=== PATIENT | female | born 1995 | race Caucasian/White ===

== ENCOUNTER → 2020-11-24 | Outpatient (CLI) | payer OTHER ==
[2020-11-25 10:19] LABS: Candida species (DNA Probe) Negative (NEGATIVE); G. vaginalis (DNA Probe) Positive (NEGATIVE); T. vaginalis (DNA Probe) Negative (NEGATIVE)
[2020-11-26 00:09] LABS: CHLAMYDIA TRACHOMATIS, NAA Negative (Negative)
== END ==
LOC: LAB 16:00 → LAB SHORT 16:00
PROVIDERS: Nurse Practitioner Family
DX: Z11.3 Encounter for screening for infections with a predominantly sexual mode of transmission (principal)
CPT/HCPCS: 87480; 87491; 87510; 87591; 87660

== ENCOUNTER → 2021-03-24 | Outpatient (CLI) | payer OTHER | LOC: LAB 12:00 → LAB SHORT 12:00 | DX: N39.0 Urinary tract infection, site not specified (principal); R11.0 Nausea; E10.649 Type 1 diabetes mellitus with hypoglycemia without coma | CPT/HCPCS: 87077; 87086; 87186 ==

== ENCOUNTER → 2021-12-27 | Outpatient (CLI) | payer OTHER | END | disposition home or self-care (01) | LOC: LAB 15:00 → LAB SHORT 15:00 | DX: R39.0 Extravasation of urine (principal) | CPT/HCPCS: 87086 ==

== ENCOUNTER → 2022-09-24 | Outpatient (CLI) | payer OTHER | LOC: LAB SHORT 15:12 → LAB 15:12 | DX: N39.0 Urinary tract infection, site not specified (principal) | CPT/HCPCS: 87086 ==

== ENCOUNTER 2023-01-30 20:41 | Emergency (ER) | payer OTHER ==
[~2023-01-30] VITALS: Ht 162.6 cm; Wt 72.6 kg
[2023-01-30 22:00] VITALS: BP 149/91
== END 2023-01-30 22:00 | disposition home or self-care (01) ==
LOC: ER 20:41
DX: F41.0 Panic disorder [episodic paroxysmal anxiety] (principal); E11.9 Type 2 diabetes mellitus without complications; Z88.0 Allergy status to penicillin
CPT/HCPCS: 82947; 93005; 93010; 99283-25

== ENCOUNTER 2023-06-04 19:31 | Observation (INO) | payer OTHER ==
[~2023-06-04] VITALS: Ht 160 cm; Wt 61.9 kg
[2023-06-04 20:21] LABS: Base Excess Venous 1.3 mmol/L; Bicarbonate Venous 25.3 mmol/L (24.0-30.0); PCO2 Venous 43.6 mmHg (38-42); pH Blood Venous 7.39 (7.34-7.37)
[2023-06-04 20:26] LABS: BASOPHILS ABSOLUTE AUTO 0.06 K/mm3 (0.00-0.23); BASOPHILS PERCENT AUTO 0 % (0-2); EOSINOPHILS ABSOLUTE AUTO 0.14 K/mm3 (0.00-0.68); EOSINOPHILS PERCENT AUTO 1 % (0-6); Hematocrit 36.7 % (33.0-51.0); Hemoglobin 12.9 g/dL (11.5-16.0); IMMATURE GRAN ABSOLUTE AUTO 0.11 K/mm3 (0.00-0.10); IMMATURE GRAN PERCENT AUTO 1 % (0-1); LYMPHOCYTES ABSOLUTE AUTO 1.93 K/mm3 (0.84-5.20); LYMPHOCYTES PERCENT AUTO 10 % (21-46); MONOCYTES ABSOLUTE AUTO 1.02 K/mm3 (0.16-1.47); MONOCYTES PERCENT AUTO 5 % (4-13); Mean Corpuscular HGB 30.7 pg (26.0-34.0); Mean Corpuscular HGB Conc 35.1 g/dL (31.5-36.5); Mean Corpuscular Volume 87 fL (80-100); Mean Platelet Volume 11.2 fL (9.1-12.4); NEUTROPHILS ABSOLUTE AUTO 16.43 K/mm3 (1.96-9.15); NEUTROPHILS PERCENT AUTO 83 % (41-73); Platelet Count 303 K/mm3 (150-400); RDW Coefficient Variation 11.5 % (11.7-14.2); White Blood Cell Count 19.69 K/mm3 (4.00-11.30)
[2023-06-04 20:46] LABS: Source, Urine Straight Cath
[2023-06-04 20:58] LABS: Appearance, Urine Cloudy (Clear); Bilirubin, Urine Neg (Neg); Blood, Urine 5+ (Neg); Color, Urine Yellow (P-Yellow); Glucose Qualitative, Urine 4+ (Neg); Ketones, Urine 2+ (Neg); Leukocyte Esterase, Urine 1+ (Neg); Nitrite, Urine Neg (Neg); Protein, Urine 2+ (Neg); Specific Gravity, Urine 1.025 (1.003-1.022); Urobilinogen, Urine NORM (Normal)
[2023-06-04 21:00] LABS: Alanine Aminotransfer (ALT/SGP 30 U/L (12-78); Albumin, Blood 3.1 g/dL (3.4-5.0); Alk Phos 86 U/L (50-136); Anion Gap 6 mmol/L (6-16); Aspartate Aminotrans (AST/SGOT 17 U/L (12-37); Beta HCG, Quantitative, Serum <1 mIU/mL (0-3); Bilirubin, Total 0.2 mg/dL (0.1-1.0); Blood Urea Nitrogen 9 mg/dL (8-24); Bun/Creatinine Ratio 13.8 (12.0-20.0); CO2, Blood 25 mmol/L (21-32); Chloride, Blood 105 mmol/L (98-108); Creatinine, Blood 0.65 mg/dL (0.40-1.00); Ethanol (Alcohol), Blood, Med <3 mg/dL; Globulin, Blood 3.1 g/dL (2.2-4.0); Glomerular Filtration Rate 122 (60-); Glucose, Blood 335 mg/dL (70-99); Potassium, Blood 3.3 mmol/L (3.5-5.5); Sodium, Blood 136 mmol/L (136-145); Total Protein, Blood 6.2 g/dL (6.4-8.2)
[2023-06-04 21:24] LABS: U Amphetamine Screen DETECTED; U Barbituate Screen Not Detected; U Benzodiazapine Screen Not Detected; U Buprenorphine Screen Not Detected; U Cannabinoids Screen Not Detected; U Cocaine Screen Not Detected; U Methadone Screen Not Detected; U Methamphetamine Screen DETECTED; U Opiates Screen Not Detected; U Oxycodone Screen Not Detected; U Phencyclidine Screen Not Detected; U Propoxyphene Screen Not Detected
[2023-06-04 21:27] LABS: Bacteria Many /hpf; Red Blood Cells, Urine 0-2 /hpf (0-2); Squamous Epithelial Cells Few /hpf (Few)
[2023-06-05] VITALS: BP 116/75
[2023-06-05 03:27] LABS: BASOPHILS ABSOLUTE AUTO 0.05 K/mm3 (0.00-0.23); BASOPHILS PERCENT AUTO 1 % (0-2); EOSINOPHILS ABSOLUTE AUTO 0.24 K/mm3 (0.00-0.68); EOSINOPHILS PERCENT AUTO 3 % (0-6); Hematocrit 35.1 % (33.0-51.0); Hemoglobin 11.7 g/dL (11.5-16.0); IMMATURE GRAN ABSOLUTE AUTO 0.03 K/mm3 (0.00-0.10); IMMATURE GRAN PERCENT AUTO 0 % (0-1); LYMPHOCYTES ABSOLUTE AUTO 3.06 K/mm3 (0.84-5.20); LYMPHOCYTES PERCENT AUTO 34 % (21-46); MONOCYTES ABSOLUTE AUTO 0.85 K/mm3 (0.16-1.47); MONOCYTES PERCENT AUTO 10 % (4-13); Mean Corpuscular HGB 30.4 pg (26.0-34.0); Mean Corpuscular HGB Conc 33.3 g/dL (31.5-36.5); Mean Corpuscular Volume 91 fL (80-100); Mean Platelet Volume 11.1 fL (9.1-12.4); NEUTROPHILS ABSOLUTE AUTO 4.68 K/mm3 (1.96-9.15); NEUTROPHILS PERCENT AUTO 53 % (41-73); Platelet Count 272 K/mm3 (150-400); RDW Coefficient Variation 11.6 % (11.7-14.2); RDW Standard Deviation 38.6 fL (35.1-46.3); Red Blood Cell Count 3.85 M/mm3 (3.80-5.20); White Blood Cell Count 8.91 K/mm3 (4.00-11.30)
[2023-06-05 03:29] VITALS: BP 122/77
[2023-06-05 04:03] LABS: Albumin, Blood 2.6 g/dL (3.4-5.0); Albumin/Globulin Ratio 1.1 (0.8-1.8); Bilirubin, Total 0.3 mg/dL (0.1-1.0); Calcium, Blood 7.3 mg/dL (8.5-10.1); Creatinine, Blood 0.67 mg/dL (0.40-1.00); Globulin, Blood 2.4 g/dL (2.2-4.0); Potassium, Blood 4.4 mmol/L (3.5-5.5)
--- NOTE | 2023-06-05 06:17 | NUR ---
PATIENT ADMITTED OVERNIGHT FOR SEPSIS D/T UTI. AOX4. SR/ST WITH STABLE BP. ROOM AIR. TOLERATING ADA DIET. TOTAL OF 3L FLUIDS GIVEN IN PCU.
[2023-06-05 07:21] VITALS: BP 130/84
--- NOTE | 2023-06-05 09:08 | NUR ---
ASSUMPTION OF CARE ASSUMED CARE AT APPROX 0700. PT AOX4. SLEEPING, EASILY AROUSABLE TO VERBAL STIMULI. ABLE TO COMMUNICATE NEEDS NEEDED. EXPRESSING DESIRE TO DISCHARGE HOME TODAY. VSS. TELEMETRY SHOWING SINUS RHYTHM 90'S. OCCASSIONAL EPISODES OF TACHYCARDIA 110'S. PT REPORTS THAT BASELINE HEART RATE IS 90'S-110'S. BP STABLE. SATS >90% ON ROOM AIR. PT REPORTS NO NAUSEA THIS MORNING, INCREASED APPETITE REPORTED. MANAGING ELEVATED BLOOD SUGAR PER EMAR. IVF INFUSING PER EMAR. DECLINES DIFFICULTY VOIDING, NO BURNING OR IRRITATION. PT INDEPENDENT IN ROOM. CALL LIGHT IN REACH.
[2023-06-05 11:22] VITALS: BP 124/77
--- NOTE | 2023-06-05 11:41 | NUR ---
AFTERNOON BLOOD SUGAR READING 406. THIS RN PLACED CALL TO DR. GARCIA. ORDERS FOR ADDITIONAL 2 UNITS OF REGULAR INSULIN SC ALONG WITH SLIDING SCALE [address] TOTAL OF 12 UNITS SC OF REGULAR INSULIN ADMINISTERED. THIS RN DISCUSSED HOME INUSLIN USAGE: PATIENT SHOWS THIS RN HOME INSULIN PUMP. INSULIN PUMP READING: CARB RATIO 6.0g/u AND BASAL DOSING OF 24U. PATIENT STATES SHE USES [employer] AT HOME AND HAS GONE TO DIRECTOR OF SUSTAINABLE DESIGN REFILL FROM PHARMACY.
[2023-06-05] MEDS ORDERED: INSULIN LI100 UNIT/5 SC (12:55)
[2023-06-05] MEDS ORDERED: CEPH500 PO (13:40)
[2023-06-05] MEDS ORDERED: ACET325 PO (13:41)
--- NOTE | 2023-06-05 14:32 | NUR ---
DISCHARGE NOTE NO ACUTE CHANGES SINCE ASSUMPTION OF CARE NOTE. PT REMAINS AOX4. VS REMAIN STABLE. TELEMETRY CONTINUES TO SHOW SR 90'S. BP STABLE. ON ROOM AIR, SATS >90%. ELEVATED BLOOD SUGAR LEVELS MANAGED PER EMAR. TOLERATING PO INTAKE, NO EPISODES OF NAUSEA AND VOMITING. INCREASED APPETITE REPORTED. DISCHARGE ORDERED BY MD. THIS RN PROVIDED DISCHARGE EDUCATION REGARDING MEDICATION, FOLLOW-UP OUTPATIENT CARE, AND BLOOD SUGAR MANAGEMENT AT HOME. HIGHLIGHTED IMPORTANCE OF DISCONTINUING METHAMPHETAMINE USE. PT VERBALIZING UNDERSTANDING, ASKS QUESTIONS PRN. IV RMVD. TELEMETRY BOX RMVD. PERSONAL BELONGINGS WITH PT. PT INDEPENDENT IN ROOM THROUGHOUT DAY, WAS ABLE TO DRESS HERSELF IN PERSONAL CLOTHING. PT TRANSFERRED TO PERSONAL VEHICLE VIA WHEELCHAIR AT APPROX 1425.
--- NOTE | 2023-06-05 14:51 | NUR ---
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 MORENITA HURST CONTACTED SECURITY, WAS TOLD TO DISPOSE OF EXPERIENCED TRUCK DRIVER IF PT DOES NOT WANT IT BACK. MORENITA HURST CONTACTED PT'S . PT DOES NOT WANT EXPERIENCED TRUCK DRIVER BACK, WAS TOLD TO DISPOSE OF EXPERIENCED TRUCK DRIVER. EXPERIENCED TRUCK DRIVER DISPOSED.
== END 2023-06-05 14:29 | disposition home or self-care (01) ==
LOC: ER 19:31 → PCU 19:32
PROVIDERS: Emergency Medicine; Student in an Organized Health Care Education/Training Program; ADMIT Internal Medicine
DX: A41.9 Sepsis, unspecified organism (principal); N39.0 Urinary tract infection, site not specified; E10.65 Type 1 diabetes mellitus with hyperglycemia; E87.6 Hypokalemia; Z79.4 Long term (current) use of insulin; F41.9 Anxiety disorder, unspecified; F17.210 Nicotine dependence, cigarettes, uncomplicated; Z88.0 Allergy status to penicillin
CPT/HCPCS: 36415; 71045; 80053; 81001; 82803; 82947; 83036; 83605; 84702; 85025; 87040; 87077; 87086; 87186; 94760; 96361; 96365; 96372; 96375; 99285-25; A9270; G0378; J0696; J1650; J1815; J2405; J7030

== ENCOUNTER 2023-07-13 19:35 | Observation (INO) | payer OTHER ==
[~2023-07-13] VITALS: Ht 167.6 cm; Wt 59.2 kg
[~2023-07-13 19:35] MED LIST: ACET325 PO; CEPH500 PO; INSULIN LI100 UNIT/5 SC
[2023-07-13 20:07] LABS: Base Excess Venous -21.8 mmol/L; Bicarbonate Venous 10.3 mmol/L (24.0-30.0); PCO2 Venous 26.1 mmHg (38-42); pH Blood Venous 7.09 (7.34-7.37)
[2023-07-13 20:08] LABS: BASOPHILS ABSOLUTE AUTO 0.13 K/mm3 (0.00-0.23); BASOPHILS PERCENT AUTO 1 % (0-2); EOSINOPHILS ABSOLUTE AUTO 0.04 K/mm3 (0.00-0.68); EOSINOPHILS PERCENT AUTO 0 % (0-6); Hematocrit 51.2 % (33.0-51.0); IMMATURE GRAN ABSOLUTE AUTO 0.28 K/mm3 (0.00-0.10); IMMATURE GRAN PERCENT AUTO 1 % (0-1); LYMPHOCYTES ABSOLUTE AUTO 3.31 K/mm3 (0.84-5.20); LYMPHOCYTES PERCENT AUTO 17 % (21-46); MONOCYTES ABSOLUTE AUTO 0.83 K/mm3 (0.16-1.47); MONOCYTES PERCENT AUTO 4 % (4-13); Mean Corpuscular HGB 30.7 pg (26.0-34.0); Mean Corpuscular HGB Conc 33.2 g/dL (31.5-36.5); Mean Corpuscular Volume 93 fL (80-100); Mean Platelet Volume 10.8 fL (9.1-12.4); NEUTROPHILS ABSOLUTE AUTO 15.04 K/mm3 (1.96-9.15); NEUTROPHILS PERCENT AUTO 77 % (41-73); Platelet Count 465 K/mm3 (150-400); RDW Coefficient Variation 11.7 % (11.7-14.2); RDW Standard Deviation 40.3 fL (35.1-46.3); Red Blood Cell Count 5.53 M/mm3 (3.80-5.20); White Blood Cell Count 19.63 K/mm3 (4.00-11.30)
[2023-07-13 20:23] LABS: Source, Urine Clean Catch
[2023-07-13 20:26] LABS: Bilirubin, Urine Neg (Neg); Blood, Urine 4+ (Neg); Glucose Qualitative, Urine 4+ (Neg); Ketones, Urine 4+ (Neg); Leukocyte Esterase, Urine Neg (Neg); Nitrite, Urine Neg (Neg); Protein, Urine 2+ (Neg); Specific Gravity, Urine 1.025 (1.003-1.022); Urobilinogen, Urine NORM (Normal)
[2023-07-13 20:29] LABS: Appearance, Urine Hazy (Clear); Color, Urine Yellow (P-Yellow)
[2023-07-13 20:32] LABS: Ethanol (Alcohol), Blood, Med <3 mg/dL; Magnesium, Blood 2.2 mg/dL (1.6-2.4)
[2023-07-13 20:35] LABS: Bacteria Mod /hpf; Red Blood Cells, Urine 0-2 /hpf (0-2); Squamous Epithelial Cells Mod /hpf (Few); White Blood Cells, Urine Not Seen /hpf (0-5)
[2023-07-13 20:37] LABS: Alanine Aminotransfer (ALT/SGP 37 U/L (12-78); Albumin, Blood 4.3 g/dL (3.4-5.0); Albumin/Globulin Ratio 0.9 (0.8-1.8); Alk Phos 158 U/L (50-136); Anion Gap 25 mmol/L (6-16); Aspartate Aminotrans (AST/SGOT 21 U/L (12-37); Bilirubin, Total 0.6 mg/dL (0.1-1.0); Blood Urea Nitrogen 18 mg/dL (8-24); Bun/Creatinine Ratio 19.2 (12.0-20.0); CO2, Blood 8 mmol/L (21-32); Calcium, Blood 9.4 mg/dL (8.5-10.1); Chloride, Blood 93 mmol/L (98-108); Creatinine, Blood 0.94 mg/dL (0.40-1.00); Globulin, Blood 4.6 g/dL (2.2-4.0); Glomerular Filtration Rate 84 (60-); Glucose, Blood 547 mg/dL (70-99); Potassium, Blood 5.3 mmol/L (3.5-5.5); Sodium, Blood 126 mmol/L (136-145); Total Protein, Blood 8.9 g/dL (6.4-8.2)
[2023-07-13 20:41] LABS: U Amphetamine Screen Not Detected; U Methamphetamine Screen DETECTED
[2023-07-13 20:42] LABS: U Barbituate Screen Not Detected; U Benzodiazapine Screen Not Detected; U Buprenorphine Screen Not Detected; U Cannabinoids Screen Not Detected; U Cocaine Screen Not Detected; U Methadone Screen Not Detected; U Opiates Screen Not Detected; U Oxycodone Screen Not Detected; U Phencyclidine Screen Not Detected
[2023-07-13 21:23] LABS: Beta-hydroxybutyrate 103.1 mg/dL (0.2-2.8); Phosphorus, Blood 4.4 mg/dL (2.5-4.9)
[2023-07-13 21:32] LABS: Influenza A, PCR NEGATIVE (NEGATIVE); Influenza B, PCR NEGATIVE (NEGATIVE); Resp Syncytial Virus, PCR NEGATIVE (NEGATIVE); SARS-Cov-2 (COVID-19) PCR, MMC NEGATIVE (NEGATIVE)
[2023-07-13 22:50] LABS: Bun/Creatinine Ratio 19.5 (12.0-20.0); Creatinine, Blood 0.82 mg/dL (0.40-1.00); Potassium, Blood 6.2 mmol/L (3.5-5.5)
[2023-07-13 23:00] VITALS: BP 109/49
--- NOTE | 2023-07-13 23:17 | NUR ---
ASSUMPTION OF CARE PT TO ICU VIA HOSPITAL BED AT 2240. PT ALERT, ORIGINALLY UNABLE TO ANSWER ANY QUESTIONS, WHEN ASKED AGAIN PT ABLE TO STATE NAME AND , SPEECH MUMBLED. PT COMPLAINING OF ANXIETY, TACHYPNEIC, HR 120'S SINUS TACH, MAP >65. PT ON RA, OXYGEN SATURATION >95%. BED IN LOWEST POSITION BED ALARM ON, CALL LIGHT WIHTIN REACH. CARE CONTINUES
[2023-07-14] VITALS (21 sets, daily range): BP systolic 105–136; BP diastolic 61–90
[2023-07-14 00:39] LABS: Glucose, Blood 487 mg/dL (70-99)
[2023-07-14 02:06] LABS: Base Excess Venous -16.9 mmol/L; PCO2 Venous 25.5 mmHg (38-42); pH Blood Venous 7.23 (7.34-7.37)
[2023-07-14 02:31] LABS: Bun/Creatinine Ratio 19.8 (12.0-20.0); Calcium, Blood 7.7 mg/dL (8.5-10.1); Creatinine, Blood 0.76 mg/dL (0.40-1.00); Phosphorus, Blood 1.7 mg/dL (2.5-4.9)
[2023-07-14 02:32] LABS: Potassium, Blood 3.9 mmol/L (3.5-5.5)
[2023-07-14 04:55] LABS: BASOPHILS ABSOLUTE AUTO 0.11 K/mm3 (0.00-0.23); BASOPHILS PERCENT AUTO 1 % (0-2); EOSINOPHILS ABSOLUTE AUTO 0.03 K/mm3 (0.00-0.68); EOSINOPHILS PERCENT AUTO 0 % (0-6); Hematocrit 37.8 % (33.0-51.0); Hemoglobin 12.9 g/dL (11.5-16.0); IMMATURE GRAN ABSOLUTE AUTO 0.13 K/mm3 (0.00-0.10); IMMATURE GRAN PERCENT AUTO 1 % (0-1); LYMPHOCYTES ABSOLUTE AUTO 4.24 K/mm3 (0.84-5.20); LYMPHOCYTES PERCENT AUTO 25 % (21-46); MONOCYTES ABSOLUTE AUTO 1.34 K/mm3 (0.16-1.47); MONOCYTES PERCENT AUTO 8 % (4-13); Mean Corpuscular HGB 30.5 pg (26.0-34.0); Mean Corpuscular HGB Conc 34.1 g/dL (31.5-36.5); Mean Corpuscular Volume 89 fL (80-100); Mean Platelet Volume 10.4 fL (9.1-12.4); NEUTROPHILS ABSOLUTE AUTO 11.43 K/mm3 (1.96-9.15); NEUTROPHILS PERCENT AUTO 66 % (41-73); Platelet Count 381 K/mm3 (150-400); RDW Coefficient Variation 11.9 % (11.7-14.2); RDW Standard Deviation 38.5 fL (35.1-46.3); Red Blood Cell Count 4.23 M/mm3 (3.80-5.20); White Blood Cell Count 17.28 K/mm3 (4.00-11.30)
[2023-07-14 05:21] LABS: Albumin, Blood 2.7 g/dL (3.4-5.0); Albumin/Globulin Ratio 0.9 (0.8-1.8); Bilirubin, Total 0.3 mg/dL (0.1-1.0); Bun/Creatinine Ratio 20.3 (12.0-20.0); Calcium, Blood 7.8 mg/dL (8.5-10.1); Creatinine, Blood 0.64 mg/dL (0.40-1.00); Globulin, Blood 3.1 g/dL (2.2-4.0)
[2023-07-14 05:22] LABS: Total Protein, Blood 5.8 g/dL (6.4-8.2)
--- NOTE | 2023-07-14 06:07 | NUR ---
SHIFT SUMMARY PT RESTING IN BED. PT BRIEFLY OPENS EYES TO VERBAL STIMULI, ABLE TO NOD HEAD TO ANSWER SOME QUESTIONS. PT DROWSY FROM BEING MEDICATED PER EMAR. HR 100-120'S SINUS TACH, MAP >65. PT ON, RA, OXYGEN SATURATION >95%. PT USES BED CHRISTENSEN TO VOID. PIV TO LAC AND RAC, POWERGLIDE TO TOMMY. INSULIN DRIP INFUSING PER EMAR, D5 1/2 NS INFUSING AT 100MLS/HR, LR INFUSING AT 250MLS/HR. BED ALARM ON, BED IN LOWEST POSITION, CALL LIGHT WITHIN REACH. CARE CONTINUES.
[2023-07-14 09:28] LABS: Magnesium, Blood 1.7 mg/dL (1.6-2.4); Phosphorus, Blood 2.5 mg/dL (2.5-4.9)
--- NOTE | 2023-07-14 09:58 | NUR ---
ASSUMED CARE CARE WAS ASSUMED OF PT AT 0700, REPORT GIVEN BY EMILI HURST. PT A/O X3-4. PT SLEEPING BUT IS AROUSED EASILY. PT ABLE TO SAY WHAT YEAR IT IS AND WHERE SHE IS. PT FALLS ASLEEP QUICKLY ONCE WOKEN UP. PT ON RA, O2 SATS > 95%. CARDIAC MONITORING REFLECTS SINUS TACH, HR 100s. SBP 120s. PT'S BLOOD GLUCOSE STABLE. INSULIN GTT INFUSING, SEE FLOWSHEET. D5 1/2NS INFUSING. PLAN FOR PT TO WAKE UP MORE TODAY AND ASSESS BEING ABLE TO SAFELY SWALLOW FOOD AND LIQUIDS AND THEN TRANSITION PT TO LONG-ACTING INSULIN. PT ABLE TO AMBULATE TO BSC WITH SBA.
[2023-07-14 10:17] LABS: Bun/Creatinine Ratio 17.5 (12.0-20.0); Calcium, Blood 7.4 mg/dL (8.5-10.1); Creatinine, Blood 0.63 mg/dL (0.40-1.00); Potassium, Blood 3.8 mmol/L (3.5-5.5)
[2023-07-14] MEDS ORDERED: BASAGLAR K100 UNIT/1 SC (13:20)
--- NOTE | 2023-07-14 15:57 | NUR ---
PT DISCHARGED AT 1550 WITH SPOUSE, MARICEL. PT AND SPOUSE AGREED AND CONFIRMED THEY WILL MAKE FOLLOW UP APPOINTMENT AT PCP. DISCHARGE INSTRUCTIONS GIVEN WITH WRITTEN PERSCRIPTION FOR INSULIN GLARGINE. 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 EDUCATED PT AND SPOUSE ON S/SX OF HYPOGLYCEMIA AND IMPORTANCE OF OBTAINING CBG SUPPLIES. QUESTIONS ANSWERED, PT AND SPOUSE VERBALIZED UNDERSTANDING OF EDUCATION GIVEN.
== END 2023-07-14 16:10 | disposition home or self-care (01) ==
LOC: ER 19:35 → ICUE 19:36
PROVIDERS: Emergency Medicine; Internal Medicine; Student in an Organized Health Care Education/Training Program; ADMIT Internal Medicine
DX: E10.10 Type 1 diabetes mellitus with ketoacidosis without coma (principal); F41.9 Anxiety disorder, unspecified; H91.90 Unspecified hearing loss, unspecified ear; E86.0 Dehydration; F15.10 Other stimulant abuse, uncomplicated; Z79.4 Long term (current) use of insulin; Z88.0 Allergy status to penicillin; Z91.148 Patient's other noncompliance with medication regimen for other reason
CPT/HCPCS: 0241U; 71045; 80048; 80053; 81001; 81025; 82010; 82803; 82947; 83605; 83735; 84100; 85025; 87086; 93005; 93010; 96361; 96372; 96374; 96375; 99285-25; C1751; G0378; J1650; J1815; J2060; J2405; J7030; J7042; J7120